=== PATIENT | female | born 1995 | race Caucasian/White ===

== ENCOUNTER 2021-03-02 08:46 | Emergency (ER) | payer OTHER ==
[2021-03-02 08:51] VITALS: BP 130/81; PULSE 96; TEMP 98.8; BMI 28.3
[2021-03-02] MEDS ORDERED: ONDANSETRON *ODT* 4 MG TABLET SL ONE (09:32)
[2021-03-02] MEDS ORDERED: MECLIZINE HCL 25 MG TABLET (FP) PO ONE (09:32)
[2021-03-02] MEDS ORDERED: MECLIZINE HCL 25 MG TABLET (FP) ONE (09:38)
[2021-03-02] MEDS ORDERED: ONDANSETRON *ODT* 4 MG TABLET ONE (09:38)
[2021-03-02 10:30] LABS: THROAT:GRP A STREP NOT DETECTED (NOTDETECTED)
[2021-03-02 12:51] LABS: SARS COV-2 MOLECULAR Negative (Negative)
== END 2021-03-02 10:35 | disposition home or self-care (01) ==
LOC: JER 08:46
DX: R09.81 Nasal congestion (principal); R42 Dizziness and giddiness; Z11.52 Encounter for screening for COVID-19
CPT/HCPCS: 87651; 87804; 99283-25; C9803; Q0162; U0003; U0005

== ENCOUNTER 2021-10-25 22:55 | Emergency (ER) | payer OTHER ==
[2021-10-25 23:10] VITALS: BP 128/87; PULSE 82; TEMP 98.6; BMI 28.3
[2021-10-26] MEDS ORDERED: CYCLOBENZAPRINE HCL 10 MG TABLET (FP) PO ONE (00:44)
[2021-10-26] MEDS ORDERED: IBUPROFEN 600 MG TABLET (FP) PO ONE ×2 (00:44→00:56)
[2021-10-26] MEDS ORDERED: LIDOCAINE 5% TOPICAL PATCH TP ONE (00:44)
[2021-10-26] MEDS ORDERED: LIDOCAINE 5% TOPICAL PATCH ONE (00:56)
[2021-10-26] MEDS ORDERED: CYCLOBENZAPRINE HCL 10 MG TABLET (FP) ONE (00:56)
[2021-10-26] MEDS ORDERED: LIDOCAINE PATCH REMOVAL MC SCH (22:00)
== END 2021-10-26 01:01 | disposition home or self-care (01) ==
LOC: JER 22:55 → JERFT 22:55
DX: S16.1XXA Strain of muscle, fascia and tendon at neck level, initial encounter (principal); W50.2XXA Accidental twist by another person, initial encounter
CPT/HCPCS: 99283-25

== ENCOUNTER 2022-01-19 09:58 | Emergency (ER) | payer OTHER ==
[2022-01-19 10:30] VITALS: BP 103/51; PULSE 92; RESP 18; TEMP 98.2; BMI 29.2
[2022-01-19] MEDS ORDERED: IBUPROFEN 600 MG TABLET (FP) PO ONE ×2 (11:42→11:43)
== END 2022-01-19 11:48 | disposition home or self-care (01) ==
LOC: JERFT 09:58 → JER 09:58 → JERFT 11:48
DX: H60.503 Unspecified acute noninfective otitis externa, bilateral (principal)
CPT/HCPCS: 99283-25

== ENCOUNTER 2022-06-21 15:50 | Emergency (ER) | payer OTHER ==
[2022-06-21 16:14] VITALS: BP 139/90; PULSE 120; RESP 18; TEMP 97.8; BMI 30.2
== END 2022-06-21 16:53 | disposition home or self-care (01) ==
LOC: JERFT 15:50
DX: J02.0 Streptococcal pharyngitis (principal)
CPT/HCPCS: 99283-25

== ENCOUNTER 2024-12-03 22:08 | Emergency (ER) | payer OTHER ==
[2024-12-03 22:14] VITALS: BP 125/84; PULSE 95; RESP 20; TEMP 99.7; BMI 29.2
[2024-12-03] MEDS ORDERED: PENICILLIN G BENZATHINE 1,200,000 UNIT/2 ML PFS IM ONE (22:31)
[2024-12-03] MEDS: PENICILLIN G BENZATHINE 1,200,000 UNIT/2 ML PFS IM ONE (22:32)
== END 2024-12-03 22:27 | disposition home or self-care (01) ==
LOC: JERFT 22:08
DX: J03.90 Acute tonsillitis, unspecified (principal)
CPT/HCPCS: 99284-25